=== PATIENT | male | born 1955 | race Caucasian/White ===

== ENCOUNTER 2017-12-08 12:33 | Emergency (ER) | payer BC, OTHER ==
[~2017-12-08] VITALS: Ht 182.9 cm; Wt 94.3 kg
--- NOTE | ~2017-12-08 | EKG ---
[place] [address] [facility] [place] [address] ELECTROCARDIOGRAM REPORT Name: ÁNGELALAMIN MARY Room #: DEP ISAURA Sanchez#: [id number] Admission: 12/08/17 Attend Phys: Discharge: 12/08/17 Date of : 59 Report #: [id number] THIS REPORT FOR: //name// [facility] ED Test Date: 2017-12-08 Test Time: 13:10:02 Pat Name: LAMIN MOTTA Department: Room: Gender: M [employer] J2E[employer] Lead: MIKE : 1955 Requested By: Jesus Penaloza Order Number: [id number] MD: Juan C Motley Measurements Intervals [place] Rate: 123 P: 72 [place]: 160 QRS: 253 QRSD: 92 T: 72 QT: 320 QTc: 458 Interpretive Statements Sinus tachycardia Left anterior fascicular block Poor R wave progression Compared to ECG 12/08/2017 12:53:05 No significant changes Electronically Signed On 12-11-2017 8:12:11 LUMP MACHINE OPERATOR by Juan C Motley [email or web address] <ELECTRONICALLY SIGNED> By: Juan C Motley MD, [facility] 12/11/17 0812 D: 010 1310 Juan C Motley MD, FACC /EPI
--- NOTE | ~2017-12-08 | EKG ---
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 : 1955 Requested By: Jesus Penaloza Order Number: [id number] MD: Juan C Motley Measurements Intervals [place] Rate: 118 P: 78 [place]: 164 QRS: 245 QRSD: 101 T: 85 QT: 314 QTc: 441 Interpretive Statements Sinus tachycardia Left anterior fascicular block Consider right ventricular hypertrophy Baseline wander in lead(s) V3 No previous ECG available for comparison Electronically Signed On 12-08-2017 16:25:13 CREDIT ADVISOR by Juan C Motley [email or web address] <ELECTRONICALLY SIGNED> By: Juan C Motley MD, [facility] 12/08/17 1625 1253 1253 Juan C Motley MD, [facility] /EPI
[2017-12-08 13:07] LABS: BE(vivo) -26.1 mmol/L (-2 to +3); HCO3 7.6 mmol/L (22.0-26.0); PCO2 48.4 mmHg (35.0-45.0); PO2 506.8 mmHg (80.0-100.0); sO2 99.7 % (92.0-98.0)
[2017-12-08 13:08] LABS: pH 6.815 (7.360-7.450)
[2017-12-08 13:15] LABS: HEMATOCRIT 34.6 % (42.0-52.0); MCH 31.7 pg (26.0-34.0); MCHC 31.8 g/dL (28.0-37.0); MCV 99.7 fL (80.0-100.0); RBC 3.47 mil/uL (4.50-6.00); RDW 13.9 % (10.5-14.5); WBC 15.6 thou/uL (4.0-11.0)
[2017-12-08 13:29] LABS: CALCIUM 9.8 mg/dL (8.5-10.1); POTASSIUM 5.7 mmol/L (3.5-5.1)
[2017-12-08 13:31] LABS: INR 1.1; PROTIME 11.5 Seconds (9.3-11.4)
[2017-12-08 13:36] LABS: URINE BILIRUBIN NEGATIVE (Negative); URINE BLOOD 2+ (Negative); URINE CLARITY CLEAR; URINE COLOR YELLOW; URINE GLUCOSE-RANDOM* TRACE (Negative); URINE KETONES NEGATIVE (Negative); URINE LEUKOCYTES-REFLEX NEGATIVE (Negative); URINE NITRITE-REFLEX NEGATIVE (Negative); URINE PROTEIN (DIPSTICK) 2+ (Negative); URINE SPECIFIC GRAVITY >= 1.030 (1.005-1.035); URINE UROBILINOGEN 0.2 E.U./dl (0.2-1.0)
[2017-12-08 13:38] LABS: ALBUMIN 2.7 g/dL (3.4-5.0); MAGNESIUM 3.3 mg/dL (1.8-2.4); TOTAL PROTEIN 6.5 g/dL (6.4-8.2); TROPONIN-I 0.07 ng/mL (<0.06)
[2017-12-08 13:41] LABS: SQUAMOUS None Seen /LPF (0-3); URINE RBC 0-2 Rare /HPF (0-2); URINE WBC-REFLEX 0-5 Rare /HPF (0-5)
[2017-12-08 13:42] LABS: CASTS None Seen /LPF (None Seen); CRYSTALS None Seen /LPF (None Seen)
[2017-12-08] MEDS ORDERED: FLONASE 0.05%50 MCG NASAL (13:51)
[2017-12-08] MEDS ORDERED: IRBESARTAN-HCT1 EAC1 PO (13:52)
[2017-12-08 15:12] LABS: BE(vivo) -11.7 mmol/L (-2 to +3); HCO3 13.7 mmol/L (22.0-26.0); PCO2 29.2 mmHg (35.0-45.0); PO2 521.9 mmHg (80.0-100.0); sO2 99.9 % (92.0-98.0)
[2017-12-08 15:13] LABS: pH 7.289 (7.360-7.450)
[2017-12-08 15:35] LABS: CREATININE 2.5 mg/dL (0.7-1.3)
[2017-12-08 17:45] VITALS: BP 115/61
[2017-12-11 08:51] LABS: POC ANION GAP Outside Report Range mmol/L (7-16); POC BUN 29 mg/dL (7-18); POC CA IONIZED 6.1 mg/dL (4.5-5.3); POC CHLORIDE 112 mmol/L (98-107); POC CREATININE 1.9 mg/dL (0.6-1.3); POC GLUCOSE 122 mg/dL (70-99); POC HEMOGLOBIN 5.8 g/dL (14.0-18.0); POC POTASSIUM < 2.5 mmol/L (3.5-5.1); POC SODIUM 140 mmol/L (136-145); POC TCO2 16 mmol/L (21-32)
== END 2017-12-08 19:30 ==
LOC: ER 12:33 → EROBS 14:22 → ER 19:30
PROVIDERS: Emergency Medicine; Hospitalist
DX: A41.9 Sepsis, unspecified organism (principal); R65.21 Severe sepsis with septic shock; N17.9 Acute kidney failure, unspecified; N39.0 Urinary tract infection, site not specified; R51 Headache; E87.2 Acidosis